=== PATIENT | male | born 1945 | race Caucasian/White ===

== ENCOUNTER 2024-08-22 09:50 | Emergency (ER) | payer OTHER, SELFPAY ==
[2024-08-22 09:54] VITALS: BP 197/97
--- NOTE | 2024-08-22 14:04 | ED.GENMED ---
History of Present Illness
General
Chief Complaint: Musculo-Skeletal Complaint
Source: patient and family (Son)
Exam Limitations: none
Time Seen by Provider: 08/22/24 12:13
History of Present Illness
History of Present Illness:
79-year-old male complaining of ongoing back pain. Patient had a Minuteman procedure done 3 weeks ago. Has had unchanged pain since then. Today's pain in fact is basically the baseline pain he has had both postprocedure and even preprocedure. He
also gets numbness in his legs but this is also been stable. No bowel or bladder issues. No fever. No abdominal pain. No urinary symptoms. Patient is frustrated to the lack of improvement. He is mostly worried because he had a large bowel
movement yesterday with significant bearing down. At that time the pain has improved. But he was concerned the screw might have moved and wanted evaluation for this.
Past History
Past History
ED Past Medical History: HTN, Hypercholesterolemia and Other (Crohn's disease)
ED Past Surgical History: Appendectomy, Orthopedic (Minuteman spinal surgery) and Other (Hernia repair surgery)
Social History
Tobacco: Non-smoker
Alcohol: None
Personal:
Living: alone
Employment: Retired
Family History
Family History: Other (Noncontributory)
Review of Systems
Review of Systems
All Other Systems: Not applicable
Constitutional: Denies fever or chills
Respiratory: Reports no symptoms
: Reports no symptoms
Phy Exam
Physical Exam
Physical Exam:
GENERAL: Alert and oriented in no apparent distress
EYE: Orbits normal.
NECK: Supple
CARDIAC: Regular rate and rhythm without any obvious murmurs.
LUNGS: Clear breath sounds,normal
ABDOMEN: Soft, without focal tenderness or distention
NEUROLOGICAL: Alert and oriented , grossly non-focal
SKIN: Warm and dry, well-healing incision right lower back
MUSCULOSKELETAL: No edema,no deformity.Good color. No spinal tenderness. No pain with straight leg raising. Good distal color. Good distal strength. Some pain with the active sitting up however upon standing and walking patient is able to bear
full weight and walk well. Decreased patellar reflexes bilaterally but symmetrical. No bladder distention.
PSYCH: Normal and appropriate interaction.
Course
Orders/Labs/Results
Orders:
Orders
08/22/24 12:44
Lumbar Spine, 2 or 3 View [CR Lumbar Spine 2 Or 3 Views] Urgent
Comment:
Reason For Exam: back pain .minuteman procedure
08/22/24 14:00
Ketorolac [Toradol] 30 mg IM NOW STA
Vital Signs
Initial and Last Documented VS:
Initial Vital Signs
Temp Pulse Resp BP Pulse Ox
98.2 F 96 16 197/97 97
08/22/24 09:54 08/22/24 09:54 08/22/24 09:54 08/22/24 09:54 08/22/24 09:54
Last Documented Vital Signs
Temp Pulse Resp BP Pulse Ox
98.2 F 96 16 197/97 97
08/22/24 09:54 08/22/24 09:54 08/22/24 09:54 08/22/24 09:54 08/22/24 09:54
MDM/Problems Addressed
Differential Diagnosis Includes:
Patient neurologically stable and essentially unchanged over the last month. No significant progression acutely. Mostly concerned about the screw. The screw is stable. He is neurologically stable. No clinical findings to support infectious
issue or acute cord issue or cauda equina issue. Will give a dose of Toradol and follow-up closely. I did attempt to contact his physician to no avail
*Radiology
Radiology exam reviewed: radiology read reviewed (Stable screw and degenerative changes on x-ray)
*Pulse Oximetry
SaO2: 97
Oxygen Mode of Delivery: Room air
Patient hypoxic: no
*Critical Care Note
Total Time (30-74mins, 75-104mins- exclusive of procedures): Not Applicable
Data Reviewed
Review of Other/Old Records Reveals: Labs and Testing
ED Attending Note
-
Portions of this chart may have been created with voice recognition software.� Occasional wrong word or��sound alike� substitutions may have occurred due to the inherent limitations of voice recognition software.
Discharge Plan
Departure
Patient Disposition: Home (Routine Discharge)
Date of Disposition: 08/22/24
Time of Disposition: 14:08
Patient with high blood pressure during this ER visit?: Yes
Discharge Problem:
Ongoing back pain, History of chronic back pain, Recent Minuteman procedure
Instructions: Low back pain - ED discharge instructions, BLOOD PRESSURE
Prescriptions:
No Action
mesalamine [Pentasa] 250 MG capsule, extended release
500 mg PO BID
atorvastatin 20 MG tablet
20 mg PO QPM
lorazepam 0.5 MG tablet
0.5 mg PO HS
lisinopril 10 MG tablet
10 mg PO DAILY
amoxicillin-pot clavulanate 1 TABLET tablet
1 tab PO Q12 7 Days Qty: 13 0RF
Referrals:
Aomr Bundy DO [Family Provider, Family Practice] - Follow up in 2-3 days
Activity Restrictions/Additional Instructions:
Call your pain specialist Saturday morning for close follow-up.
To consider an evaluation by the [facility] team
Return with increasing pain increasing weakness numbness bowel or bladder issues fever or any other concerning symptoms
Interventions
Interventions:
*Risk Screen - Suicide Last Done: 08/22/24 09:55
*General Assessment Last Done: 08/22/24 12:49
*Neglect/Abuse Screening Last Done: 08/22/24 09:55
*ED- Fall Risk Assessment Last Done: 08/22/24 12:49
ED-Musculoskeletal Assessment Last Done: 08/22/24 12:48
Discharge Date and Time
Print Language: [place]IZ[place]
[2024-08-22] MEDS: TORADOL 30 MG IM (14:08)
[2024-08-22 14:14] VITALS: BP 145/67
== END 2024-08-22 14:44 | disposition home or self-care (01) ==
LOC: EMR 09:50
PROVIDERS: EMERGENCY PHYSICIAN Emergency Medicine; FAMILY PHYSICIAN Family Medicine
DX: M54.50 Low back pain, unspecified (principal); R20.0 Anesthesia of skin; I10 Essential (primary) hypertension; E78.00 Pure hypercholesterolemia, unspecified; K50.90 Crohn's disease, unspecified, without complications; G89.29 Other chronic pain; Z98.890 Other specified postprocedural states; Z98.1 Arthrodesis status
CPT/HCPCS: 99284; 96372; 72100